=== PATIENT | female | born 1970 | race Caucasian/White ===

== ENCOUNTER 2021-05-23 07:50 | Day surgery (SDC) | payer BC, OTHER ==
[~2021-05-23] VITALS: Ht 165.1 cm; Wt 83.6 kg
--- NOTE | ~2021-05-23 | OR ---
[facility] [address] [place], [place] [address] Draft DATE OF OPERATION: 05/23/2021 SURGEON: Barbara Watson DO PROCEDURE: Hysteroscopy D and C. PREOPERATIVE DIAGNOSIS: Uterine fibroid. POSTOPERATIVE DIAGNOSIS: Uterine fibroid. ASSISTANTS: None. COMPLICATIONS: None. ANESTHESIA: Monitored anesthesia care. ESTIMATED BLOOD LOSS: 15 mL. FINDINGS: fibroid encompassing much of the pelvis. Cervix significantly deviated to the patient's left, abnormally long endocervical canal, likely due to distortion from fibroid, normal-appearing endometrium without thickening, polyps, or lesions noted. Bilateral tubal ostia visualized. INDICATION: The patient is a 50-year-old female who came into clinic for an annual exam. Masses palpable on bimanual exam. She was sent for ultrasound which confirmed a 10 cm fibroid, which obscured further visualization of the remainder of the uterus or the ovaries. Risks, benefits, and alternatives to hysteroscopy D and C for endometrial tissue sampling were discussed. Recommendation was made to perform in the OR due to anticipated distortion of anatomy and likely significant discomfort with the procedure and the patient elected to proceed. PATIENT NAME: NARINDER REHMAN OPERATIVE REPORT DATE OF : 70 REPORT #: [id number] PHYSICIAN: BARBARA WATSON DO PCP: NATHALIA METZGER PA-C REPORT IS CONFIDENTIAL AND NOT TO BE RELEASED WITHOUT AUTHORIZATION [facility] [address], [place] [address] Draft DESCRIPTION OF PROCEDURE: The patient was taken to the operating room where she was placed under heavy sedation and positioned in dorsal lithotomy. She was prepped and draped in normal sterile fashion. A weighted speculum was placed in the vagina and the anterior lip of the cervix was grasped with an Allis clamp. External os of the cervix was dilated with Hegar dilators to accommodate a 6 mm scope which was then introduced for direct visualization using sterile saline as a distention media for remainder of cervical dilation as significant anatomic distortion was anticipated and cervical canal was not easy to palpate blindly using Hegar dilators. Sterile saline was used as the distending media with the management system and cervix did easily dilate with passage of the scope using the fluid as distention media. Endometrial cavity was surveyed with findings as noted above and circumferential curettage was performed using the MyoSure Lite device. No difficulties or complications were encountered. All instrumentation was removed. Fluid deficit was noted to be 325 mL. Sponge and instrument counts were correct. The patient was transported to recovery in stable and satisfactory condition with plans for postop to discuss future management including recommendation for treatment with Lupron for fibroid size reduction to accommodate laparoscopic hysterectomy in the future pending pathology results. DO ANDRE Pollard/CIPRIANO /[id number] Copies: ~ PATIENT NAME: NARINDER REHMAN RISHI OPERATIVE REPORT DATE OF : 70 REPORT #: [id number] PHYSICIAN: BARBARA WATSON DO PCP: NATHALIA METZGER PA-C REPORT IS CONFIDENTIAL AND NOT TO BE RELEASED WITHOUT AUTHORIZATION
[~2021-05-23 07:50] MED LIST: ACYCLOVIR400 MG PO; BENADRYL ALLERG25 MG PO; BUPROPION XL300 MG PO; FLONASE ALLERG9.9 ML NAS; GABAPENTIN300 MG PO; INDERAL LA60 MG PO; NEURONTIN100 MG; OSTEOBLOX CF C1 EACH PO; PRILOSEC OTC20 MG PO; SINGULAIR10 MG PO; SUBVENITE200 MG PO; VENTOLIN HFA18 GM; VENTOLIN HFA18 GM INH; WELLBUTRIN XL300 MG PO
--- NOTE | 2021-05-23 08:26 | NUR ---
CONNECTED WITH PT AND THEY ENTERED THE RM. GAVE ENCOURAGEMENT AND BLESSING. WILL FOLLOW NEEDED
[2021-05-23] MEDS ORDERED: VITAMIN D325 MCG PO (08:50)
[2021-05-23] MEDS ORDERED: VITAMIN D21250 MCG PO (08:51)
--- NOTE | 2021-05-23 11:42 | NUR ---
1130: PATIENT UPDATED MULTIPLE TIMES ABOUT REASON FOR DELAY. PATIENT STATES COMING BACK IN TO HOSPITAL TO KEEP HER COMPANY. PATIENT OFFERED OPTION OF RESCHEDULING PER DR. FLORES. PATIENT SAYS SHE WILL TALK WITH ABOUT RESCHEDULING ONCE HE ARRIVES. 1140: PATIENT UPDATED THAT AN OR CREW IS AVAILABLE AND SURGERY WILL BE ABLE TO START SHORTLY AFTER SHE IS SEEN BY ANESTHESIA PROVIDER.
--- NOTE | 2021-05-23 13:32 | NUR ---
05/23/21 1332 Sheets,She 1238 PT ARRIVED TO PACU ON 10L VIA MASK, JAW THRUST NEEDED TO MAINTAIN AIRWAY. SUCTION USED DUE TO SECRETIONS IN THROAT. CLEAR SECRETIONS NOTED. VSS. 1244 PT WAKES TO TACTILE STIMULI AND ORAL AIRWAY REMOVED.
--- NOTE | 2021-05-23 14:19 | NUR ---
PT UP TO BATHROOM AND VSS. PT DENIES PAIN AND NAUSEA. PT SIPPING TEA AND REFUSES FOOD. "WOULD LIKE TO GET THI FOOD." 5899 PT DRESSED HERSELF AND DC INSTRUCTIONS GIVEN. RX AND PAPERWORK GIVEN. STUDENT RN AT BEDSIDE. PT AND PT VERBALIZED UNDERSTANDING AND PT DC VIA WC.
--- NOTE | 2021-05-24 12:23 | PATH ---
[facility] [address] [place], [place] [address] Signed SPECIMEN(S): A ENDOMETRIAL CURETTINGS SPECIMEN SOURCE: A. ENDOMETRIAL CURETTINGS CLINICAL HISTORY: Uterine mass. Hysteroscopy DC. FINAL PATHOLOGIC DIAGNOSIS: Endometrium, curettage: - Weakly proliferative endometrium with focal acute inflammation; no hyperplasia or neoplasia identified. BRP:cml:C2NR MICROSCOPIC EXAMINATION: Histologic sections of all submitted blocks are examined by light microscopy. These findings, together with the gross examination, support the pathologic diagnosis. GROSS DESCRIPTION: The specimen, labeled "PH, endometrial curettings," is received in formalin and consists of irregular shaped, membranous and hemorrhagic tissue fragments that aggregate measure 2.8 x 1.0 x 0.2 cm. Specimen is entirely submitted in cassette (A1). JS (under the direct supervision of a pathologist) The Gross Description was prepared using a voice recognition system. The report was reviewed for accuracy; however, sound-alike word errors, addition and/or deletions may occur. If there is any question about this report, please contact Client Services. PERFORMING LABORATORY: The technical component was performed by [facility], [address] [place] [id number] (Wort Extractor: Ifeoma Reyez MD; CLIA# [id number]). [facility], [address] [address] (CLIA# [id number]). Diagnostician: Isiah Blood MD Pathologist Electronically Signed 05/24/2021 PATIENT NAME: NARINDER REHMAN PATHOLOGY DATE OF : 70 REPORT #: [id number] PHYSICIAN: MANUEL KINCAID PCP: NATHALIA METZGER PA-C REPORT IS CONFIDENTIAL AND NOT TO BE RELEASED WITHOUT AUTHORIZATION [address] [address] Signed Copies: ~ PATIENT NAME: NARINDER REHMAN RISHI PATHOLOGY DATE OF : 70 REPORT #: [id number] PHYSICIAN: MANUEL PATHOLOGY PCP: NATHALIA METZGER PA-C REPORT IS CONFIDENTIAL AND NOT TO BE RELEASED WITHOUT AUTHORIZATION
== END 2021-05-23 14:35 | disposition home or self-care (01) ==
LOC: DS 07:50 → OPS 09:45 → DS 11:00
PROVIDERS: ATTEND Obstetrics & Gynecology
PROC: 0UDB8ZX Extraction of Endometrium, Via Natural or Artificial Opening Endoscopic, Diagnostic (ICD-10-PCS; principal; 2021-05-23 11:00)
DX: D25.9 Leiomyoma of uterus, unspecified (principal); J45.909 Unspecified asthma, uncomplicated
CPT/HCPCS: 36415; 84703; 86850; 86900; 86901; J1100; J1885; J2001; J2250; J2405; J2704; J2765; J3010; J7121

== ENCOUNTER 2021-09-23 15:08 | Emergency (ER) | payer BC, OTHER ==
[~2021-09-23] VITALS: Ht 165.1 cm; Wt 83.5 kg
[~2021-09-23 15:08] MED LIST changes: +VITAMIN D21250 MCG PO; +VITAMIN D325 MCG PO
== END 2021-09-23 18:30 | disposition home or self-care (01) ==
LOC: ED 15:08
DX: D25.9 Leiomyoma of uterus, unspecified (principal); J45.909 Unspecified asthma, uncomplicated; Z88.5 Allergy status to narcotic agent; Z88.8 Allergy status to other drugs, medicaments and biological substances; Z79.899 Other long term (current) drug therapy
CPT/HCPCS: 76830; 76856; 99284-25

== ENCOUNTER 2021-10-09 15:08 | Inpatient (IN) | payer BC, OTHER ==
[~2021-10-09] VITALS: Ht 165.1 cm; Wt 78.2 kg
--- NOTE | ~2021-10-09 | OR ---
[facility] [address] [place], [place] [address] Draft DATE OF OPERATION: 11/23/2021 SURGEON: Barbara Watson DO PREOPERATIVE DIAGNOSES: Uterine fibroids, dysmenorrhea, dyspareunia, abnormal uterine bleeding. POSTOPERATIVE DIAGNOSES: Uterine fibroids, stage IV endometriosis, extensive intraabdominal adhesions, dysmenorrhea, dyspareunia. PROCEDURES: Total abdominal hysterectomy, extensive lysis of adhesions, and cystoscopy. GLASS BELT SANDER: Aldo Taylor MD. ANESTHESIA: Spinal and general. BLOOD LOSS: 350 mL. COMPLICATIONS: None. FINDINGS: Extensive dense scarring of bowel to uterine fundus. Complete obliteration of posterior cul-de-sac. Stage IV endometriosis with chocolate cyst on right ovary. Obliteration of bilateral tubes and scarring. Normal-appearing appendix. Normal-appearing cervix. Numerous fibroids ranging in size from 1 cm diameter to nearly 10 cm diameter with uterine weight greater than 250 g. Cystoscopy, normal-appearing bladder with bilateral ureteral efflux visualized. INDICATIONS: The patient is a 50-year-old female with history of worsening pelvic pressure, dyspareunia, dysmenorrhea, and heavy bleeding, who was 1st noted to have a large palpable mass on May 15, 2021. She underwent ultrasound, which revealed a large fibroid uterus and trial of Lupron therapy for fibroid reduction, which was unsuccessful both in terms of the patient's symptoms and in terms of reducing fibroid size. Risks, PATIENT NAME: NARINDER REHMAN OPERATIVE REPORT DATE OF : 70 REPORT #: [id number] PHYSICIAN: BARBARA WATSON DO PCP: NATHALIA METZGER PA-C REPORT IS CONFIDENTIAL AND NOT TO BE RELEASED WITHOUT AUTHORIZATION [facility] [address] [place], [place] [address] Draft benefits, and alternatives to total abdominal hysterectomy were discussed. She strongly desired definitive surgical management and elected to proceed. DESCRIPTION OF PROCEDURE: The patient was taken back to the operating room, where she was given 2 g Ancef. Spinal anesthesia was placed for pain management, and then she was placed under general anesthesia. Heparin 5000 units was administered subcu and she was prepped and draped in normal sterile fashion in the supine position. Vertical midline incision extending to, but not beyond the umbilicus was made with a scalpel and carried down to the underlying layer of fascia with Bovie cautery, cauterizing, perforating vessels, as they were encountered. The fascia was nicked with a scalpel and incision was extended superiorly and inferiorly with Metzenbaum scissors. Peritoneum was grasped with hemostats, elevated and entered sharply with Metzenbaum scissors. This was then extended superiorly and inferiorly with Metzenbaum with excellent visualization of the bladder. Srini retractor was then placed and pelvis was surveyed with findings as noted above, particularly the dense adhesions and obliteration of the posterior cul-de-sac. As anatomy was being examined, endometrioma from the right ovary ruptured a chocolate cyst, contents of which were suctioned immediately. Round ligaments were grasped with Chichi's, elevated, and cut with the scalpel. Pedicles were suture ligated with 0 Vicryl, which was used for the remainder of the case, except as otherwise specified. This also allowed entry into the peritoneum overlying the uterus and was carefully dissected back methodically freeing the uterus from the bowel without injury to the bowel. After extensive lysis of adhesions, the uterus was grasped with a single-tooth tenaculum and elevated from the pelvis, at which point uterine vessels could be clamped, cut, and suture ligated down to the level of the cervix. Prior to this point, bladder flap was developed with Metzenbaum scissors and uterosacral ligaments were easily identified and palpated. At the level of the cervix, cardinal ligaments were clamped, cut, suture ligated, and colpotomy was performed with Meghna scissors. Cuff was closed using Yi suture at each apex with two dshkqy-xe-acmij at midline. Pelvis was then examined just superior to the cuff at midline and area of oozing was noted. This was closed with 2-0 chromic in a rgrstx-vn-fshvu fashion with resulting hemostasis. Raw edges of peritoneum were examined and hemostasis was obtained with a combination of Bovie cautery and additional firddk-do-cxpnb stitches with 3-0 chromic small perforating vessels, as they were encountered. At this point ovarian tissue could be identified from the former adhesions, each ovary had raw edges of the serosa, which were reapproximated with 0 chromic in a running fashion with resulting hemostasis. Tubes could not be definitively identified on either side, and salpingectomy thus could not be safely performed. Due to the significantly atypical anatomy, decision was made to proceed with cystoscopy. The patient was repositioned for cystoscopy. Flexible scope was used to visualize bilateral ureteral jets and the patient was redraped for final exam and closure. Surgeon's gloves and gown were changed and attention was returned to the abdomen. Packing was removed. Persistent areas of oozing were then cauterized with PATIENT NAME: NARINDER REHMAN RISHI OPERATIVE REPORT DATE OF : 70 REPORT #: [id number] PHYSICIAN: BARBARA WATSON DO PCP: NATHALIA METZGER PA-C REPORT IS CONFIDENTIAL AND NOT TO BE RELEASED WITHOUT AUTHORIZATION [facility] [address] [place] [address] [place], [place] [address] Draft Bovie cautery with resulting hemostasis. Tisseel was applied over raw peritoneal surfaces after copious irrigation with warm sterile saline. Sponges were removed. Sponge counts were noted to be correct. Srini retractor was removed. Peritoneum was closed with 2-0 Vicryl in a running fashion and fascia was closed with 0 PDS in a running fashion. Subcutaneous layer was closed with 3-0 Vicryl in a running fashion and skin was closed with skin clips. Sponge and instrument counts were correct and the patient was taken to recovery in stable and satisfactory condition. Barbara Watson DO EMZ/MODL /[id number] Copies: ~ PATIENT NAME: NARINDER REHMAN OPERATIVE REPORT DATE OF : 70 REPORT #: [id number] PHYSICIAN: BARBARA WATSON DO PCP: NATHALIA METZGER PA-C REPORT IS CONFIDENTIAL AND NOT TO BE RELEASED WITHOUT AUTHORIZATION
[~2021-10-09 15:08] MED LIST changes: +MAGNESIUM-VIT1 EAC1 PO; -VITAMIN D325 MCG PO
--- NOTE | 2021-11-23 11:17 | NUR ---
11/23/21 1117 Alycia Winter 1058- PT ARRIVES TO PACU AWAKE AND TALKING WITH STAFF. RESP EVEN AND UNLABORED. OXYGEN SAT HIGH 90'S TO 100% ON 6L VIA MASK. PT REPORTS IT IS "HARD TO TAKE A DEEP BREATH". PASSENGER REPRESENTATIVE AWARE. SPINAL LEVEL CHECKED AND IS AT T4. PASSENGER REPRESENTATIVE AWARE OF THIS. PASSENGER REPRESENTATIVE TALKING WITH PT/ 1101- PT REPORTS SHE IS HOT. PT PROVIDED COOL AIR. PT STATES THIS IS HELPING HER FEEL BETTER. 1104- PT IS TRYING TO SIT UP AND MOVE AROUND IN THE BED. PT STATES SHE FEELS LIKE HER "LEGS ARE HEAVY" AND SHE NEEDS THEM STRAIGHTENED. PT'S LEGS STRAIGHTENED AND EXPLAINED TO PT THAT THE SPINAL CAN MAKE HER LEGS FEEL HEAVY. PT STATES UNDERSTANDING. DR. FLORES AT THE BEDSIDE TO TALK WITH THE PT. VERBAL ORDER RECEIVED FOR PT TO HAVE AN ABD BINDER AND ICE PACK PLACED. 1107- ABD BINDER PLACED TO PT'S ABD. 1111- OXYGEN TITRATED OFF OXYGEN SAT HAS BEEN 100% ON 6L VIA MASK. 1113- ICE PACK APPLIED TO PT'S ABD.
--- NOTE | 2021-11-23 12:43 | NUR ---
PT TO ROOM VIA BED. REPORT RECEIVED FROM PRASAD BOURGEOIS. ALL QUESTIONS ANSWERED. ABD DRESSING CDI, ABD BINDER PLACED, ICE PACK ON TOP. PT DENIES PAIN OR NAUSEA. ICE WATER AT BEDSIDE. PT COMPLAIN OS FEELING HOT. COOL WET WASHCLOTH ON FOREHEAD. PT DENIES FURTHER NEEDS AT THIS TIME. ORIENTED BERNARDO CALL LIGHT, WITHIN REACH. AT BEDSIDE.
--- NOTE | 2021-11-23 13:58 | NUR ---
PT ABD DRESSING CDI, ABD BINDER IN PLACE. PT DENIES PAIN, NAUSEA OR NEEDS AT THIS TIME. CALL LIGHT IN REACH. AT BEDSIDE.
--- NOTE | 2021-11-23 15:08 | NUR ---
PT RESTING IN BED, EASILY AWAKENS. BP 118/77 MAP 86. ABD DRESSING CDI AND ABD BINDER IN PLACE. GONZALEZ EMPTIED, 600 OUT. PT STATES SHE FEELS SLEEPY, WOULD LIKE TO GET UP AROUND DINNER TO WALK AROUND. CALL LIGHT IN REACH. DENIES FURTHER NEEDS AT THIS TIME.
[2021-11-23] MEDS ORDERED: BUPROPION XL150 MG PO (17:58)
--- NOTE | 2021-11-23 18:14 | NUR ---
ASSISTED PT TO AMBULATE IN ROOM, TOLERATED WELL. IN RECLINER, LINENS CHANGED AND PT BACK TO BED. PT DENIES PAIN AT THIS TIME. ABD DRESSING CDI. ABD BINDER REPOSITIONED. FRESH ICE PACK PROVIDED. PT DENIES FURTHER NEEDS AT THIS TIME. CALL LIGHT IN REACH.
--- NOTE | 2021-11-23 19:45 | NUR ---
Patient resting in bed. Denies pain. Denies nausea. Call light within reach.
--- NOTE | 2021-11-23 23:30 | NUR ---
IN TO CHECK ON PT, PT PLACED BACK ON CPOX PER POST OP ORDERS, NO FURTHER NEEDS AT THIS TIME
--- NOTE | 2021-11-23 23:31 | NUR ---
Patient sleeping in bed. WASTE DISPOSAL LEAKAGE TESTER in place. Call light within reach.
--- NOTE | 2021-11-24 00:30 | NUR ---
Patient sleeping in bed. CPOX in place. Call light within reach.
--- NOTE | 2021-11-24 02:05 | NUR ---
IN TO ASSIST RN WITH 2AM VITALS, GONZALEZ EMPTIED
--- NOTE | 2021-11-24 04:35 | NUR ---
Uneventful shift. Patient fully alert and oriented. Calls appropriately. CMS intact. On RA. Lung sounds clear bilat. Bowel sounds hypoactive. Patient claims to have passed small amount of flatus. Intake has been adequate. Output in Tejada bag has been adequate. Saline locked. Transfers w/SBA in room. Pain has been well controlled w/PRN toradol. No drainage noted on surg site dressing.
--- NOTE | 2021-11-24 07:49 | NUR ---
PT RESTING QUIETLY WITH EYES CLOSED, RESPIRATIONS EVEN AND UNLABORED. O2 SAT 96%. CALL LIGHT IN REACH.
--- NOTE | 2021-11-24 08:03 | NUR ---
PATIENT DID NOT WANT TO GET UP UNTIL BREAKFAST, REFUSED ALL AM CARES UNTIL THE MEAL WELL. CALL LIGHT WITHIN REACH.
[2021-11-24] MEDS ORDERED: TYLENOL EXTRA500 MG PO (08:50)
--- NOTE | 2021-11-24 08:54 | NUR ---
MED REC COMPLETE
[2021-11-24] MEDS ORDERED: NORETHINDRONE AC5 MG PO (09:03)
--- NOTE | 2021-11-24 09:10 | NUR ---
MORNING ASSESSMENT COMPLETE. ABD DRESSING CDI, PT STATES PAIN IS 3/10 AND TOLERABLE. GONZALEZ REMOVED. PT UP TO RECLINER. DENIES FURTHER NEEDS AT THIS TIME. CALL LIGHT IN REACH.
--- NOTE | 2021-11-24 09:51 | NUR ---
PATIENT SITTING UP IN CHAIR. INDEPENDENT IN ROOM. VITALS AND I/O'S COMPLETED. CALL LIGHT WITHIN REACH.
--- NOTE | 2021-11-24 09:57 | NUR ---
PT SITTING UP IN RECLINER, STATES PAIN IS 3/10 AND TOLERABLE AT THIS TIME. DENIES NEED FOR PAIN INTERVENTION AT THIS TIME. DENIES NAUSEA, DIZZINESS OR FURTHER NEEDS AT THIS TIME. CALL LIGHT IN REACH.
--- NOTE | 2021-11-24 10:48 | NUR ---
PT RADHA BRIAN CHAIR ON PHONE. DENIES NEEDS AT THIS TIME. CALL KARLOS COLLINS.
--- NOTE | 2021-11-24 11:30 | NUR ---
PT UP TO RESTROOM AND BACK TO CHAIR. FAMILY AT BEDSIDE. DENIES NEED FOR PAIN INTERVENTION OR FURTHER NEEDS AT THIS TIME. CALL LIGHT IN REACH.
--- NOTE | 2021-11-24 12:34 | NUR ---
SPOKE WITH PATIENT BY ROOM PHONE. SHE PLANS TO DISCHARGE THIS AFTERNOON HOME. HER FAMILY WILL PROVIDE TRANSPORT. THEY WILL ALSO BE AVAILABLE TO DRIVE HER TO APPOINTMENTS OR TO GET MEDS. SHE LIVES WITH . HAS ADULT KIDS WHO WILL HELP. SHE DENIES USING OR NEEDING ANY DME. HAS BEEN UP IN ROOM AND FEELS GOOD TO RETURN HOME. DENIES ANY PROBLEMS AFFORDING NEEDS SUCH MEDS. 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 ALL DEMOGRAPHIC INFORMATION CURRENT AND CORRECT. NO QUESTIONS. NO BARRIERS TO RETURN HOME AT DISCHARGE.
--- NOTE | 2021-11-24 13:14 | NUR ---
PT C/O 07/23 ABD PAIN. GIVEN PRN TYLENOL3. IV NOT FLUSHING, OK WITH DR FLORES TO REMOVE. IV REMOVED. PT SITTING IN CHAIR VISITING FAMILY. DENIES FURTHER NEEDS AT THIS TIME. CALL LIGHT IN REACH.
--- NOTE | 2021-11-24 13:30 | NUR ---
PATIENT SITTING UP IN CHAIR VISITING WITH DAUGHTER. VITALS AND I/O'S COMPLETED. CALL LIGHT WITHIN REACH.
--- NOTE | 2021-11-24 15:13 | NUR ---
PT AWAKE IN CHAIR, STATES PAIN HAS IMPROVED TO 2/10. DENIES FURTHER NEEDS AT THIS TIME. CALL LIGHT IN REACH.
--- NOTE | 2021-11-24 16:33 | NUR ---
PT UP TO RESTROOM. AT BEDSIDE.
[2021-11-24] MEDS ORDERED: IBU800 MG PO (16:48)
[2021-11-24] MEDS ORDERED: ACETAMINOPHEN-1 EAC1 PO (16:48)
[2021-11-24] MEDS ORDERED: 8 HOUR650 MG PO (16:54)
--- NOTE | 2021-11-24 17:17 | NUR ---
Dr Watson in room with pt.
--- NOTE | 2021-11-27 15:28 | PATH ---
[facility] [address] [place], [place] [address] Signed SPECIMEN(S): A UTERUS, CERVIX, FIBROIDS SPECIMEN SOURCE: A. UTERUS, CERVIX, FIBROIDS CLINICAL HISTORY: Uterine leiomyoma, abnormal uterine bleeding, perimenopausal, recurrent genital HSV. KERWIN, bilateral salpingectomy. FINAL PATHOLOGIC DIAGNOSIS: Uterus, cervix and fibroids: - Benign proliferative endometrium, negative for hyperplasia or atypia. - Benign myometrial leiomyomas with focal hyalin necrosis, negative for atypical features or malignancy. - Benign endo and ectocervix. JVR:nkechi:C2NR MICROSCOPIC EXAMINATION: Histologic sections of all submitted blocks are examined by light microscopy. These findings, together with the gross examination, support the pathologic diagnosis. GROSS DESCRIPTION: The specimen, labeled "PH, A," and designated on the requisition "uterus, cervix, fibroid," is received in formalin and consists of a uterus (912 g, 16.2 x 10.9 x 9.5 cm), and attached cervix (1.8 x 3.7 cm) with pink-shahid, smooth cervical mucosa and patent circular os (0.5 cm in diameter). The uterine serosa is red-pink and distorted by subserosal masses. The cervix is opened to reveal a pink-shahid wrinkled endocervix (endocervical canal: 3.0 x 1.2 cm). Sectioning of the uterus reveals a distorted endometrial cavity (8.4 cm superior to inferior x 3.0 cm cornu to cornu) with a shahid endometrial lining that measures less than 0.1 cm in thickness. The myometrium is pink-shahid and trabeculated with multiple white-shahid, well-circumscribed whorled masses that range in size from 0.3 and 9.0 cm in greatest dimension. Spectral Scientist sections are submitted as follows: (A1) Anterior and posterior cervix (A2) Endomyometrium (A3-A7) whorled masses PATIENT NAME: NARINDER REHMAN PATHOLOGY DATE OF : 70 REPORT #: [id number] PHYSICIAN: MANUEL PATHOLOGY PCP: NATHALIA METZGER PA-C REPORT IS CONFIDENTIAL AND NOT TO BE RELEASED WITHOUT AUTHORIZATION [facility] [address] [facility] [place] [place] [address] Signed AC (under the direct supervision of a pathologist) The Gross Description was prepared using a voice recognition system. The report was reviewed for accuracy; however, sound-alike word errors, addition and/or deletions may occur. If there is any question about this report, please contact Client Services. PERFORMING LABORATORY: The technical component was performed by [facility], [address] [place] [id number] (CLIA# [id number]). Professional interpretation was performed by [facility] - [facility], [address] [place] [id number] (CLIA#: [id number]). Diagnostician: Ajay Del Valle MD Pathologist Electronically Signed 11/27/2021 Copies: ~ PATIENT NAME: NARINDER REHMAN PATHOLOGY DATE OF : 70 REPORT #: [id number] PHYSICIAN: MANUEL KINCAID PCP: NATHALIA METZGER PA-C REPORT IS CONFIDENTIAL AND NOT TO BE RELEASED WITHOUT AUTHORIZATION
== END 2021-11-24 17:33 | disposition home or self-care (01) | DRG 743 ==
LOC: MS 10-19 06:45 → DSVR 11-23 05:40 → MS 11-23 05:40
PROVIDERS: ADMIT Obstetrics & Gynecology; ATTEND Obstetrics & Gynecology
PROC: 0UT90ZZ Resection of Uterus, Open Approach (ICD-10-PCS; principal; 2021-11-23 06:45)
PROC: 0UNF0ZZ Release Cul-de-sac, Open Approach (ICD-10-PCS; 2021-11-23 06:45)
PROC: 0TJB8ZZ Inspection of Bladder, Via Natural or Artificial Opening Endoscopic (ICD-10-PCS; 2021-11-23 06:45)
DX: D25.9 Leiomyoma of uterus, unspecified (principal); N80.8 Other endometriosis; F31.9 Bipolar disorder, unspecified; J45.909 Unspecified asthma, uncomplicated; E55.9 Vitamin D deficiency, unspecified; Z98.890 Other specified postprocedural states; Z79.899 Other long term (current) drug therapy; A60.00 Herpesviral infection of urogenital system, unspecified
CPT/HCPCS: 00840; 36415; 64488; 76942; 85027; 86850; 86900; 86901; A9270; J0131; J0690; J1100; J1200; J1644; J1885; J2001; J2250; J2274; J2370; J2405; J2704; J2765; J2795; J3010; J7121

== ENCOUNTER 2022-03-20 06:12 | Day surgery (SDC) | payer BC, OTHER ==
[~2022-03-20] VITALS: Ht 165.1 cm; Wt 77.6 kg
[~2022-03-20 06:12] MED LIST changes: +8 HOUR650 MG PO; +ACETAMINOPHEN-1 EAC1 PO; +BUPROPION XL150 MG PO; +IBU800 MG PO; +NORETHINDRONE AC5 MG PO; +TYLENOL EXTRA500 MG PO
[2022-03-20] MEDS ORDERED: VENLAFAXINE H37.5 M2 PO (06:35)
--- NOTE | 2022-03-20 08:11 | NUR ---
03/20/22 0811 Arianne Rutledge 0804-PATIENT ARRIVED TO PACU ON 3L NC PLACED ON 2L RR EVEN. PATIENT VERY DROWSY SLIGHTLY OPENS EYES. IMMEDIATELY DOZES BACK TO SLEEP. ABDOMEN SOFT. IVF INFUSING.
--- NOTE | 2022-03-20 09:16 | NUR ---
PT RETURNED TO ROOM IN DS. REPORTS SHE FEELS TOO SLEEPY TO GET DRESSED. SHE IS DRINKING WATER TOLERATES WELL.
--- NOTE | 2022-03-20 09:35 | NUR ---
PT SLEEPING COMFORTABLE. CALL LIGHT WITHIN REACH.
--- NOTE | 2022-03-20 10:00 | NUR ---
PT TALKING, TRYING TO WAKE UP SHE IS TAKING SIPS OF WATER. TOLERATES WELL.
--- NOTE | 2022-03-20 10:04 | NUR ---
PT SITTING AT THE EDGE OF BED GETTING DRESSED. SHE IS ABLE TO DRESS HERSELF. DENIES PAIN OR NAUSEA.
--- NOTE | 2022-03-20 15:52 | OR ---
[facility] [address], [place] [address] Signed DATE OF OPERATION: 03/20/2022 SURGEON: Radha Downey MD PREOPERATIVE DIAGNOSES: 1. Hiatal hernia. 2. Acid reflux. 3. Paternal aunt with colon polyps in her mid 50s. 4. Chronic constipation diarrhea. 5. Discomfort and pressure with bowel movements. POSTOPERATIVE DIAGNOSES: 1. Moderate sized hiatal hernia (40-36 cm). 2. GE junction at 36 cm. 3. Mild distal gastritis. 4. 4 mm polyp at 18 cm (rectum). 5. Minimal internal hemorrhoids. PROCEDURES: 1. Esophagogastroduodenoscopy with CLOtest and biopsies of the duodenum, antrum and GE junction. 2. Colonoscopy with hot biopsy and random cold biopsies. ESTIMATED BLOOD LOSS: None. INDICATIONS: Cari is a 51-year-old female, asked to see me for both upper and lower endoscopy. She presents as above. She thinks her acid reflux symptoms are getting worse despite her daily use of omeprazole. She spoke of a colonoscopy in 2017 at age 46 at [facility] in [place], [place]. She believes it was negative. We know her paternal aunt had colonic polyps removed in her mid 50s. She talks about chronic constipation diarrhea for many years. She also said that she had a hysterectomy for fibroid tumors. She now has pressure in her pelvis with bowel movements. In the office, I gave her pamphlets on both upper and lower endoscopy. We reviewed the nature of the two tests. There is risk including, but not limited to gas bloating, crampy abdominal pain, bleeding, perforation requiring surgery, and missed diagnosis. We also reviewed the need for IV conscious sedation. She had expressed understanding and wished to proceed. PROCEDURE IN DETAIL: Electronically Signed By: RADHA DOWNEY MD 03/20/22 1552 PATIENT NAME: CARI REHMAN OPERATIVE REPORT DATE OF : 70 REPORT #: [id number] PHYSICIAN: RADHA DOWNEY MD PCP: NATHALIA METZGER PA-C REPORT IS CONFIDENTIAL AND NOT TO BE RELEASED WITHOUT AUTHORIZATION [facility] [address], [place] [address] Signed Cari was taken in the endoscopy suite and placed in the supine semi-recumbent position. The posterior oropharynx was anesthetized with Hurricaine spray. A bite block was utilized for the case. We utilized 13 mg of Versed and 200 mcg of fentanyl to get through both cases. She was a little awake and moaning during her colonoscopy. If she has recall of that she probably should have monitored anesthesia care in the future with propofol infusion. Thankfully, she was fairly easy to pass the scope. We passed the adult gastroscope down through the esophagus out into the duodenum. The duodenum and pyloric channel were unremarkable. We took a biopsy of the duodenum because of the history of diarrhea. She has some mild erythematous changes in the distal antrum. We went and took a biopsy of the antrum for pathologic review as well as CLOtest. Upon retroflexion of scope we could see her moderate-sized hiatal hernia. The scope was withdrawn up through the area of the GE junction, which was compliant without stricture. The hiatal hernia measured about 40 back to 36 cm. This is consistent with how tall she is. Very minimal disruption to the Z-line. We went ahead and took a biopsy along the edge of the Z-line. Her distal middle and upper esophagus were unremarkable. After this, the gas was suctioned out, the gastroscope removed. Cari tolerated her upper endoscopy well. Cari was then rotated into the left lateral decubitus position. She was maintained on IV sedation with Versed and fentanyl. Digital rectal exam was performed. She has good sphincter tone. There were no masses. There were no external hemorrhoids. The adult colonoscope was introduced and advanced all the way around into the cecum under direct visualization of camera. It took extra sedation and abdominal compression in order to advance the scope. Even then Cari was a bit awaken, moaning and may benefit from propofol infusion in the future. Her prep was quite excellent. We could easily see the appendiceal orifice and ileocecal valve. We slowly withdrew the scope. We took pictures throughout for photodocumentation. We took several random biopsies throughout the colon because of the history of diarrhea. She had a very tiny flat 4 mm polyp at the top of her rectum at 18 cm. It was easily removed with a hot biopsy forceps. Upon retroflexion of scope, she has very minimal internal hemorrhoid columns. After this, the gas was suctioned out, colonoscope removed. Cari tolerated the procedure quite well. RECOMMENDATIONS: I will see Cari back in my office in 7 to 14 days to review her results. Radha Downey MD ALB/MODL Electronically Signed By: RADHA DOWNEY MD 03/20/22 1552 PATIENT NAME: CARI REHMAN RISHI OPERATIVE REPORT DATE OF : 70 REPORT #: [id number] PHYSICIAN: RADHA DOWNEY MD PCP: NATHALIA METZGER PA-C REPORT IS CONFIDENTIAL AND NOT TO BE RELEASED WITHOUT AUTHORIZATION [facility] [address] [place] [address] Signed /[id number] cc: MD Nathalia Quinn PA-C Copies: RADHA DOWNEY MD ~ Electronically Signed By: RADHA DOWNEY MD 03/20/22 1552 PATIENT NAME: CARI REHMAN RISHI OPERATIVE REPORT DATE OF : 70 REPORT #: [id number] PHYSICIAN: RADHA DOWNEY MD PCP: NATHALIA METZGER PA-C REPORT IS CONFIDENTIAL AND NOT TO BE RELEASED WITHOUT AUTHORIZATION
--- NOTE | 2022-03-23 12:29 | PATH ---
[facility] [address] [facility] [place], [place] [address] Signed SPECIMEN(S): A DUODENAL BIOPSY SPECIMEN(S): B ANTRUM BIOPSY SPECIMEN(S): C GE JUNCTION SPECIMEN(S): D RECTAL POLYP AT 18 CM SPECIMEN(S): E RANDOM COLON BIOPSY SPECIMEN SOURCE: A. DUODENAL BIOPSY B. ANTRUM BIOPSY C. GE JUNCTION D. RECTAL POLYP AT 18 CM E. RANDOM COLON BIOPSY CLINICAL HISTORY: Reflux; hiatal hernia; family history of colon polyps. Postop diagnosis: Mild gastritis, hiatal hernia, internal hemorrhoids, rectal polyp FINAL PATHOLOGIC DIAGNOSIS: A. Duodenal biopsy: - Benign duodenal mucosa, negative for specific diagnostic abnormality. - Negative for increased epithelial lymphocytes. - Preserved villous architecture. B. Antrum biopsy: - Antral-type mucosa with mild reactive features and slight chronic inflammation. - Negative for evidence of Helicobacter organisms on routine HE stained sections. C. GE junction, biopsy: - Benign esophageal and gastric glandular mucosa with reactive features and mild chronic inflammation. - Negative for specialized intestinal metaplasia or dysplasia. - Rare epithelial eosinophils within the esophageal mucosa (up to 3-4 per high power field). D. Rectal polyp at 18 cm: - Hyperplastic polyp (one fragment). E. Random colon biopsy: - Benign colonic mucosa, negative for pathologic inflammation. - Negative for atypical epithelial features. [id number] MICROSCOPIC EXAMINATION: PATIENT NAME: NARINDER REHMAN RISHI PATHOLOGY DATE OF : 70 REPORT #: [id number] PHYSICIAN: MANUEL KINCAID PCP: NATHALIA METZGER PA-C REPORT IS CONFIDENTIAL AND NOT TO BE RELEASED WITHOUT AUTHORIZATION [facility] [address] [place], [place] [address] Signed Histologic sections of all submitted blocks are examined by light microscopy. These findings, together with the gross examination, support the pathologic diagnosis. GROSS DESCRIPTION: Five specimens are received in five containers, labeled "PH." A. The specimen, labeled "PH, duodenal biopsy," is received in formalin and consists of one shahid soft tissue fragment that measures 0.2 cm in greatest dimension. The specimen is entirely submitted in cassette (A1). B. The specimen, labeled "PH, antrum biopsy," is received in formalin and consists of one shahid soft tissue fragment that measures 0.5 cm in greatest dimension. The specimen is entirely submitted in cassette (B1). C. The specimen, labeled "PH, GE junction," is received in formalin and consists of one shahid soft tissue fragment that measures 0.5 cm in greatest dimension. The specimen is entirely submitted in cassette (C1). D. The specimen, labeled "PH, rectal polyp at 18 cm," is received in formalin and consists of one shahid soft tissue fragment that measures 0.5 cm in greatest dimension. The specimen is entirely submitted in cassette (D1). E. The specimen, labeled "PH, random colon biopsy," is received in formalin and consists of three hsahid soft tissue fragments that measure 0.3 to 0.7 cm in greatest dimension. The specimen is entirely submitted in cassette (E1). HH (under the direct supervision of a pathologist) The Gross Description was prepared using a voice recognition system. The report was reviewed for accuracy; however, sound-alike word errors, addition and/or deletions may occur. If there is any question about this report, please contact Client Services. PERFORMING LABORATORY: The technical component was performed by [facility], [facility] [address] [place] [address] (CLIA# [id number]). Professional interpretation was performed by [facility] - [facility], [address] [place], [place] [address]., [place] [address] (CLIA#: [id number]). Diagnostician: Ajay Del Valle MD Pathologist Electronically Signed 03/23/2022 PATIENT NAME: NARINDER REHMAN RISHI PATHOLOGY DATE OF : 70 REPORT #: [id number] PHYSICIAN: MANUEL KINCAID PCP: NATHALIA METZGER PA-C REPORT IS CONFIDENTIAL AND NOT TO BE RELEASED WITHOUT AUTHORIZATION [facility] [address] [facility] [place], [place] [address] Signed Copies: ~ PATIENT NAME: HILARYAVERYNARINDER RISHI PATHOLOGY DATE OF : 70 REPORT #: [id number] PHYSICIAN: MANUEL KINCAID PCP: NATHALIA METZGER PA-C REPORT IS CONFIDENTIAL AND NOT TO BE RELEASED WITHOUT AUTHORIZATION
== END 2022-03-20 10:15 | disposition home or self-care (01) ==
LOC: OPS 06:12 → DS 06:12 → OPS 07:30 → DS 09:45 → OPS 09:45
PROVIDERS: ATTEND Colon & Rectal Surgery
PROC: 0DB98ZX Excision of Duodenum, Via Natural or Artificial Opening Endoscopic, Diagnostic (ICD-10-PCS; 2022-03-20)
PROC: 0DB58ZX Excision of Esophagus, Via Natural or Artificial Opening Endoscopic, Diagnostic (ICD-10-PCS; 2022-03-20)
PROC: 0DB48ZX Excision of Esophagogastric Junction, Via Natural or Artificial Opening Endoscopic, Diagnostic (ICD-10-PCS; 2022-03-20)
PROC: 0DBP8ZZ Excision of Rectum, Via Natural or Artificial Opening Endoscopic (ICD-10-PCS; principal; 2022-03-20 07:30)
PROC: 0DBE8ZX Excision of Large Intestine, Via Natural or Artificial Opening Endoscopic, Diagnostic (ICD-10-PCS; 2022-03-20 07:30)
DX: K29.70 Gastritis, unspecified, without bleeding (principal); K59.09 Other constipation; K52.9 Noninfective gastroenteritis and colitis, unspecified; K44.9 Diaphragmatic hernia without obstruction or gangrene; K21.9 Gastro-esophageal reflux disease without esophagitis; Z83.71 Family history of colonic polyps; K62.1 Rectal polyp; K64.8 Other hemorrhoids
CPT/HCPCS: 36415; 87077; 99153; G0500; J2250; J3010

== ENCOUNTER 2025-01-15 15:58 | Emergency (ER) | payer OTHER ==
[~2025-01-15] VITALS: Ht 165.1 cm; Wt 89.7 kg
[~2025-01-15 15:58] MED LIST changes: +CARAFATE1 GM PO; +PROTONIX40 MG PO; +VENLAFAXINE H37.5 M2 PO
[2025-01-15 17:52] VITALS: BP 113/69
== END 2025-01-15 17:52 | disposition home or self-care (01) ==
LOC: ED 15:58
DX: S61.012A Laceration without foreign body of left thumb without damage to nail, initial encounter (principal); J45.909 Unspecified asthma, uncomplicated; Z88.5 Allergy status to narcotic agent; Z79.899 Other long term (current) drug therapy; W25.XXXA Contact with sharp glass, initial encounter
CPT/HCPCS: 12001; 73140; 99283